=== PATIENT | male | born 1995 | race Caucasian/White ===

== ENCOUNTER 2016-08-15 02:28 | Emergency (ER) | payer BC, OTHER ==
[2016-08-15] MEDS ORDERED: Lactated Ringers 1,000 ML IV ONE ×2 (02:44→05:16)
[2016-08-15] MEDS ORDERED: Ondansetron 4 MG/2 ML SDV IVPUSH ONE (02:44)
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
[2016-08-15 02:47] VITALS: BP 118/78
[2016-08-15] MEDS ORDERED: Sodium Chloride 0.9% 10 ML Syringe FLUSH PRN (03:30)
[2016-08-15] MEDS ORDERED: Iopamidol 612 MG/ML 150 ML Bottle IVPUSH ONE (03:30)
[2016-08-15] MEDS ORDERED: Lactated Ringers 1,000 ML ONE (05:18)
--- NOTE | 2016-08-17 09:06 | CR ---
Left ankle: Four views of the left ankle were obtained utilizing portable technique. Comparison: No previous study. Ankle mortise is symmetric. No fracture, dislocation or other bony abnormality is seen. Impression: 1. No abnormality is identified on left ankle exam. Diagnostic code #1
--- NOTE | 2016-08-17 09:06 | CR ---
Left tibia and fibula: Two views of the left tibia and fibula were obtained. Overlying artifact is noted. No discrete fracture or other bony abnormality is appreciated. Impression: 1. Overlying artifact. 2. No acute bony abnormality is identified on left tibia and fibula study. Diagnostic code #2
--- NOTE | 2016-08-17 09:07 | CT ---
Cervical spine: Multiple axial sections were obtained from above the C1 inferiorly to the bottom of T2. Reconstructed sagittal and coronal images were reviewed. Comparison: No previous cervical spine study. Findings: Mastoid sinuses and middle ear cavities are clear. Posterior skull base is intact. Vertebral body heights and disc spaces are maintained. Vertebral bodies and posterior arches are intact with no fracture being seen. Slight endplate concavity seen within T1 believed to represent incidental Schmorl's node deformity. Mild deformity of the right clavicle is seen compatible with old fracture. No bony central or bony neural foraminal stenosis is seen. No abnormal subluxation is seen Impression: 1. Incidental findings. Nothing acute is appreciated on CT study of the cervical spine. Diagnostic code #2 Agree with preliminary report issued by [employer] (preliminary [facility] report dictated on 08/15/16, 5:01 AM Central Time)
--- NOTE | 2016-08-17 09:07 | CT ---
CT thoracic spine Technique: Multiple axial sections were obtained through the thoracic spine. Reconstructed sagittal and coronal images were reviewed. Findings: Mild superior endplate concavity is noted of T2, T3 and T4. These are most likely old as I do not see a definite fracture line. Other vertebral body heights are maintained. Minimal scattered endplate osteophytes are seen. Old right clavicle fracture again noted which appears healed. No bony central or bony neural foraminal stenosis is seen. No abnormal subluxation is seen. Impression: 1. Mild endplate concavities within T2, T3 and T4 which are likely old. 2. Other incidental findings. 3. Nothing acute is appreciated on CT study of the thoracic spine. Diagnostic code #2 Agree with preliminary report issued by [employer] (preliminary [facility] report dictated on 08/15/16, 4:55 AM Central Time)
--- NOTE | 2016-08-17 09:07 | CT ---
CT lumbar spine Technique: Multiple axial sections were obtained through the lumbar spine. Reconstructed coronal and sagittal images were reviewed. Findings: Vertebral body heights and disc spaces are maintained. Vertebral bodies and posterior arches are intact. No fracture is seen. No traumatic disc herniation is seen. No abnormal subluxation is seen. Impression: 1. Nothing acute is identified on CT study of the lumbar spine. Diagnostic code #1 Agree with preliminary report issued by [employer] (preliminary [facility] report dictated on 08/15/16, 4:56 AM Central Time)
--- NOTE | 2016-08-17 09:07 | CT ---
CT chest Technique: Multiple axial sections through the chest were obtained. Intravenous contrast was utilized. Comparison: No previous chest imaging. Findings: Mediastinum and hilar regions show no adenopathy or mass. No pericardial thickening is seen. No axillary adenopathy is seen. Opacified aorta appears within normal limits. Lungs are clear. No pleural effusions are seen. No pulmonary contusion is identified. No pneumothorax is seen. Bone window settings were reviewed which show no discrete rib fracture. Impression: 1. No abnormality identified on CT study of the chest. Diagnostic code #1 Agree with preliminary report issued by [facility] (preliminary [facility] report dictated on 08/15/16, 4:59 AM Central Time) CT abdomen and pelvis Technique: Multiple axial sections were obtained from above the dome of the diaphragm inferiorly through the pubic symphysis. Intravenous contrast was utilized. Delayed images were also obtained to the bladder. No oral contrast has been given. Findings: Liver and spleen shows no focal abnormality. Adrenal glands show no nodule. Pancreas is within normal limits. Kidneys show symmetric contrast enhancement without hydronephrosis or mass. Aorta shows no aneurysmal dilatation. Gallbladder shows no calcified gallstones. No retroperitoneal adenopathy or mesenteric abnormalities are seen. No pelvic mass or adenopathy is seen. No bowel dilatation is seen. No free fluid or inflammatory change is seen within the abdomen or pelvis. Impression: 1. Nothing acute seen on CT study of the abdomen and pelvis. Diagnostic code #1 Agree with preliminary report issued by [facility] (preliminary [facility] report dictated on 08/15/16, 4:59 AM Central Time)
--- NOTE | 2016-08-17 09:07 | CT ---
Head CT Technique: Multiple axial sections through the brain were obtained. Intravenous contrast was not utilized. Comparison: No previous intracranial imaging. Findings: Ventricles along with basal cisterns and sulci over the convexities are within normal limits for the patient's age. No abnormal parenchymal densities are seen. No evidence of intracranial hemorrhage. No midline shift or mass effect is seen. Visualized sinuses are clear. No acute calvarial abnormality is seen. Impression: 1. Nothing acute is identified on noncontrast head CT study. Diagnostic code #1 Agree with preliminary report issued by [employer] (preliminary [facility] report dictated on 08/15/16, 4:59 AM Central Time)
== END 2016-08-15 06:50 | disposition home or self-care (01) ==
LOC: JD.ED 02:28
DX: S80.812A Abrasion, left lower leg, initial encounter (principal); S90.512A Abrasion, left ankle, initial encounter; F10.120 Alcohol abuse with intoxication, uncomplicated; X58.XXXA Exposure to other specified factors, initial encounter
CPT/HCPCS: 36415; 70450; 71260; 72125; 72128; 72131; 73590; 73610; 74177; 80053; 81001; 83690; 85025; 85610; 85730; 96361; 96374; 99285; G0480; J2405; J7050; J7120; Q9967; 99284